=== PATIENT | female | born 1950 | race Two or more races ===

== ENCOUNTER 2017-03-06 07:20 | Day surgery (SDC) | payer MEDICARE, MEDICAID ==
[~2017-03-06] VITALS: Ht 162.6 cm; Wt 77.1 kg
[~2017-03-06 07:20] MED LIST: GLIP5TAB26 PO; INSU100V7 SUBQ; Lactated Ringer's 1,000 ML IV ONE
[2017-03-06] MEDS ORDERED: fentaNYL-PF 50 mCg/mL 2 mL Inj ONE (07:21)
[2017-03-06] MEDS ORDERED: Propofol 10,000 mCg/mL 20 mL Inj ONE (07:21)
--- NOTE | 2017-03-06 07:48 | PCM.HPANE ---
Patient Data Surgeon Admitting Provider: Attending Provider:Xavier Mcmillan MD Primary Care Physician:Joy Carreon MD Other Provider:[place] [facility] Reason for Visit Colon Polyp, Gerd Ht/WT & BMI Height (Feet): 5 Height (Inches): 4 Weight (Kilograms): 77.11 Body Mass Index 29.00 Allergies Coded Allergies: Sulfa (Sulfonamide Antibiotics) (Verified Allergy, Severe, hives, 03/05/17) codeine (Verified Allergy, Intermediate, n/v, 03/05/17) Past Anesthesia History Anesthesia History: Denies:: Abnormal Airway, Anesthesia Reactions, Difficult Intubation, Fam Anesthesia Reaction, Fam Malignant Hypertherm, Malignant Hyperthermia Diabetes History Hx Diabetes?: Yes Current Bedside Blood Glucose: 113 MRSA MRSA: No Medications Blood Thinner: Aspirin Last Dose Blood Thinner: Mar 05, 2017 Reported Medications Glipizide ER 5 Mg Tab.er.245 Mg PO DAILY 03/05/17 Insulin Glargine (Lantus U100 Insulin Vial)100 Unit/Ml Vial20 Unit SUBQ HS #1 VIAL Ref 0 03/05/17 History History of ENT Problems?: No HEENT History: Denies:: Abnormal Airway Difficult Intubation Hearing Problem Denture Type: None Full- Upper Teeth Condition: Within Normal Limits Hx of Heart Problems?: No Cardiovascular History: Denies:: AICD Abdominal Aortic Aneurism Atrial Fibrillation Cardiac Surgery Chest Pain Congestive Heart Failure Coronary Artery Disease Edema Heart Murmur Hypertension Irregular Heartbeat Pacemaker Peripheral Vascular Rheumatic Fever Thrombophlebitis Valvular Heart Disease Hx of Respiratory Problem?: No Respiratory History: Denies:: Asthma COPD Chest Surgery Cough Dyspnea Emphysema Hemoptysis Oxygen Administration Pneumonia Pulmonary Embolism Tuberculosis Use of C-PAP Machine Use of Inhalers / NEBS Hx Neurologic Problems?: Yes Other Neurological Pertinent: history of polio as a child Hx of GI Problems?: Yes Other GI Pertinent History: polyps Hx of Problems?: No Hx Musculoskeletal Problems?: Yes Other History/Comment polio as a child Hx Surgeries?: Yes (lt leg x3, hysterectomy,tubal, leg, colon,) Hx Diabetes: YesBedside Blood Glucose: 113 Hx Alcohol Use: Yes (rarely) Stop/Bang NANCIE Risk Assessment: Low Risk, <3 Yes Risk Assessment Category Category 1A: Patient has history of documented sleep apnea, and HAS NOT received any narcotic, sedative or anesthesia administration during this stay. Category 1B: Patient has history of documented sleep apnea, and HAS received any narcotic , sedative or anesthesia administration during this stay Category 2: Patient has SUSPECTED Obstructive Sleep Apnea, and HAS received any narcotic , sedative or anesthesia administration during this stay. Category 3: Patient has SUSPECTED Obstructive Sleep Apnea and HAS NOT received narcotic, sedative or anesthesia administration during this stay. Category 4: Outpatient in Procedural Areas with known sleep apnea or who screen positive for High Risk via the STOP/BANG questionnaire. Exam Exam General Appearance: Alert, Oriented X3, Cooperative, No Acute Distress HEENT/AIRWAY: MP 2 Lungs: Clear to Auscultation, Normal Air Movement Heart: Exam Unremarkable, Regular Rate/Rhythm, No Murmurs/Rubs/Gallops Meds/Labs/Diagnostics Admission Meds Current Medications Lactated Ringer's (Lr) 1,000 ml @ 10 mls/hr Q24H ONCE IV Last administered on 03/06/17 07:42; Start 03/06/17 at 06:00; Stop 03/07/17 at 05:59 Bedside Blood Glucose: 113 Plan Impression Patient chart reviewed, patient interviewed and anesthestic plan with risks, benefits, and alternatives discussed, and informed consent obtained. NPO per Anesth. Guidelines: Yes ASA Physical Status: ASA2 Mod Systemic Disease Anesthetic Plan: MAC Bene/Risks/Altern/Consents: Yes HP Complete Prior to Induction: Yes Celine Rausch MD Mar 06, 2017 07:48
[2017-03-06] MEDS ORDERED: ASPI-973 PO (07:51)
[2017-03-06 07:52] VITALS: BP 147/71; PULSE 65; RESP 15; O2SAT 99
[2017-03-06] MEDS ORDERED: MetoCLOpramide 5 mg/mL 2 mL Inj IVPUSH PRN (08:20)
[2017-03-06] MEDS ORDERED: Lactated Ringer's 1,000 ML IV SCH (08:20)
[2017-03-06] MEDS ORDERED: Ondansetron 2 mg/mL 2 mL Inj IVPUSH PRN (08:20)
--- NOTE | 2017-03-06 08:21 | PCM.ANEP1 ---
Post Anesthesia Phase 1 PACU Phase 1 Assessment Vital Signs Vital Signs Date Time Temp Pulse Resp B/P Pulse Ox O2 Delivery O2 Flow Rate FiO2 03/06/17 07:52 36.6 65 15 147/71 99 Room Air Anesthetic Administered: MAC Level of Alertness: Awake, talking YOON's with Equal Strength: Yes Pain: No Nausea or Vomiting: No Oxygen Delivery: Room Air Lungs: Clear to Auscultation, Normal Air Movement Dermatome Level: Full Sensation Celine Rausch MD Mar 06, 2017 08:21
[2017-03-06 08:25] VITALS: BP 125/53; PULSE 64; RESP 12; O2SAT 99
[2017-03-06 08:33] VITALS: BP 121/53; PULSE 67; RESP 16; O2SAT 100
--- NOTE | 2017-03-06 08:33 | ENDO ---
[address] [address] ENDOSCOPY PROCEDURE PATIENT: BHUMI MCKENNA : 1950 MR#: [id number] ADMIT: 03/06/2017 JOB ID: [id number] PROCEDURE: Esophagogastroduodenoscopy with biopsy and colonoscopy. PREOPERATIVE DIAGNOSIS(ES): Gastroesophageal reflux disease with a history of colon polyps. POSTOPERATIVE DIAGNOSIS(ES): 1. Small hiatal hernia. 2. Bulbar duodenitis. 3. Small internal hemorrhoids. ANESTHESIA: Monitored anesthesia care. COMPLICATION: None. ESTIMATED BLOOD LOSS: Minimal. DESCRIPTION OF PROCEDURE: After risks and benefits were explained to the patient, informed consent was obtained. After anesthesia administered, the upper endoscope was inserted in the mouth, intubated the esophagus, stomach, second portion of duodenum, and mucosa examined. After procedure the scope withdrawn and procedure terminated. Colonoscope was inserted from rectum to the cecum. Mucosa carefully examined. Prep of the patient was excellent. After the procedure was done, the scope was withdrawn and the procedure terminated. FINDINGS: Upon inspection esophagus, esophagus is normal without masses, ulcers, or lesions. Z-line located at 35 cm from incisors. Upon entering the stomach, the stomach was also normal without masses, ulcers, or lesions. Retroflexion shows a small hiatal hernia. Duodenal bulb, some mild erythema consistent with bulbar duodenitis. First and second portion were normal. Biopsies taken at duodenal bulb, antrum body, and distal esophagus. Upon inspection of the anus, no masses, hemorrhoids, ulcers, or fissures that were seen. Throughout the entire examination, there are no polyps, masses, or lesions. Retroflexion showed small internal hemorrhoids. IMPRESSIONS: 1. Small internal hemorrhoids. 2. Small hiatal hernia. 3. Bulbar duodenitis status post biopsy. RECOMMENDATIONS: 1. Repeat colonoscopy in 5 years given history of polyps. 2. Will prescribe Dexilant 60 mg by mouth once a day for GERD. 3. Await pathology results.
[2017-03-06 08:45] VITALS: BP 151/69; PULSE 61; RESP 14; O2SAT 100
--- NOTE | 2017-03-07 16:25 | PATH ---
SURGICAL PATHOLOGY Attending Physician:Xavier Mcmillan MD CASE STATUS: Signed Out PATIENT NAME: BHUMI MCKENNA PID: [id number] : 1950 DATE COLLECTED:03/06/2017 17:04 SPECIMEN: 1: Stomach, Antrum, Biopsy 2: Gastric, Biopsy 3: Esophagus, Biopsy 4: Duodenum, Biopsy CLINICAL HISTORY: 1. ANTRUM BX 2. GASTRIC BODY BX 3. DISTAL ESOPHAGUS BX 4. DUODENUM BX FINAL DIAGNOSIS: 1. Antrum, Biopsy: Gastric antral mucosa with mild chronic gastritis and focal regions of intestinal metaplasia. No Helicobacter organisms identified by H&E stain. Negative for dysplasia, and malignancy. 2. Gastric Body, Biopsy: Portions of gastric body-type mucosa with no diagnostic abnormality. Negative for intestinal metaplasia, dysplasia, and malignancy. No Helicobacter organisms identified by H&E stain. 3. Distal Esophagus, Biopsy: Portions of squamocolumnar junctional mucosa with ulcerative esophagitis. Negative for intestinal metaplasia/Rios's metaplasia. Negative for dysplasia and malignancy. No viral cytopathic effect identified. A fungal stain is pending; results will be reported as an addendum. 4. Duodenum, Biopsy: Superficial portion of duodenal mucosa with a well-preserved villous architecture and active duodenitis, non-specific. Negative for features of sprue, dysplasia, or malignancy. ICD10: K29.7 GROSS DESCRIPTION: The specimen is received in four formalin filled containers labeled with the patient's name. 1). The specimen is sublabeled "antrum" and consists of a 0.3 x 0.3 x 0.3 CM portion of tissue which is entirely submitted in cassette 1A. 2). The specimen is sublabeled "gastric body" and consists of 2 portions of tissue which aggregate to 0.3 x 0.3 x 0.2 CM. The specimen is entirely submitted in cassette 2A. 3). The specimen is sublabeled "distal esophagus" and consists of a 0.2 x 0.2 x 0.2 CM portion of tissue which is entirely submitted in cassette 3A. 4). The specimen is sublabeled "duodenum" and consists of a 0.3 x 0.2 x 0.2 CM portion of tissue which is entirely submitted in cassette 4A. 03/06/2017 [facility] ICD-9 CODES: CPT CODES: 1: 70661 2: 60676 3: 07602, 83937 4: 13614 PROCEDURE/ADDENDA: Immunohistochemistry SPI Interpretation {Not Entered} Results-Comments Part 3: A PAS stain is negative for fungal organisms. The diagnosis is unchanged. This test was developed and its performance characteristics determined by [facility]. It has not been cleared or approved by the [place]. Food and Drug Administration. The FDA has determined that such clearance or approval is not necessary. This test is used for clinical purposes. It should not be regarded as investigational or for research. Electronically Signed Out Arden Hobbs MD Electronically Signed Out Lala Hermosillo MD [facility] [address], [place] [address] Technical component performed at [facility], [address], [place], [address]
== END 2017-03-06 23:59 | disposition home or self-care (01) ==
LOC: END 07:20 → EDUNIT# 15:15 → END 23:59
PROVIDERS: ATTEND Internal Medicine Gastroenterology
DX: Z12.11 Encounter for screening for malignant neoplasm of colon (principal); Z86.010 Personal history of colon polyps; K64.8 Other hemorrhoids; K21.9 Gastro-esophageal reflux disease without esophagitis; K29.50 Unspecified chronic gastritis without bleeding; K44.9 Diaphragmatic hernia without obstruction or gangrene; R10.13 Epigastric pain; I10 Essential (primary) hypertension; E78.5 Hyperlipidemia, unspecified; E11.9 Type 2 diabetes mellitus without complications; F12.90 Cannabis use, unspecified, uncomplicated; F32.9 Major depressive disorder, single episode, unspecified; F41.9 Anxiety disorder, unspecified; Z79.4 Long term (current) use of insulin; Z79.82 Long term (current) use of aspirin; Z79.84 Long term (current) use of oral hypoglycemic drugs; Z86.12 Personal history of poliomyelitis; Z90.710 Acquired absence of both cervix and uterus
CPT/HCPCS: 43239; 88305; 88312; G0105; J7120